=== PATIENT | male | born 1975 | race Two or more races ===

== ENCOUNTER 2024-03-18 19:03 | Emergency (ER) | payer OTHER ==
[~2024-03-18] VITALS: Ht 185.4 cm; Wt 83.9 kg
[2024-03-18] MEDS ORDERED: IBUPROFEN 400 MG TABLET ONE (20:27)
[2024-03-18] MEDS: IBUPROFEN 400 MG TABLET PO ONE (20:31)
[2024-03-18] MEDS ORDERED: NAPR-1164 PO (21:26)
[2024-03-18 21:31] VITALS: BP 118/78; TEMP 98; O2SAT 99
== END 2024-03-18 21:32 | disposition home or self-care (01) ==
LOC: ER 19:09
DX: S13.4XXA Sprain of ligaments of cervical spine, initial encounter (principal); S90.31XA Contusion of right foot, initial encounter; Z79.899 Other long term (current) drug therapy; V89.0XXA Person injured in unspecified motor-vehicle accident, nontraffic, initial encounter; Y93.89 Activity, other specified; Y92.89 Other specified places as the place of occurrence of the external cause; Y99.8 Other external cause status
CPT/HCPCS: 73630-TC